=== PATIENT | male | born 1995 | race Caucasian/White ===

== ENCOUNTER 2016-10-15 11:40 | Emergency (ER) | payer BC ==
[2016-10-15] MEDS ORDERED: Al Hydrox/Mg Hydrox/Simet LIQ* 30 ML UDC PO ONE (12:45)
[2016-10-15] MEDS ORDERED: Lidocaine 2% VISCOUS* 15 ML UDC PO ONE (12:45)
--- NOTE | 2016-10-15 13:13 | ED ---
Throat Pain/Nasal Congestion - HPI Summary HPI Summary: 21M presents with feeling that something is stuck in throat. He states he had an episode of vomiting and feels that some of his vomit is stuck in his throat. He denies any n/v since. He denies any abdominal pain, diarrhea or constipation. He did drink and eat something since but still feels that it is stuck. He denies any chest pain or SOB. He denies any cough or fever. He says pain is on the right of his throat. - History of Current Complaint Chief Complaint: EDGeneral Time Seen by Provider: 10/15/16 12:33 - Allergies/Home Medications Allergies/Adverse Reactions: Allergies Allergy/AdvReac Type Severity Reaction Status Date / Time No Known Allergies Allergy Verified 10/15/16 13:35 PMH/Surg Hx/FS Hx/Imm Hx Endocrine/Hematology History: Denies: Hx Anticoagulant Therapy Cardiovascular History: Denies: Hx Hypertension Infectious Disease History: No Infectious Disease History: Denies: Traveled Outside the [place] in Last 30 Days - Family History Known Family History: Positive: Cardiac Disease - Social History Alcohol Use: Occasionally Substance Use Type: Reports: None Smoking Status (MU): Never Smoked Tobacco Review of Systems Negative: Fever Positive: Sore Throat Negative: Chest Pain Negative: Shortness Of Breath All Other Systems Reviewed And Are Negative: Yes Physical Exam Triage Information Reviewed: Yes Vital Signs On Initial Exam: Initial Vitals Temp Pulse Resp BP Pulse Ox 98.4 F 52 18 115/72 99 10/15/16 11:45 10/15/16 11:45 10/15/16 11:45 10/15/16 11:45 10/15/16 11:45 Vital Signs Reviewed: Yes Appearance: Positive: Well-Appearing Skin: Positive: Warm, Dry Head/Face: Positive: Normal Head/Face Inspection Eyes: Positive: Normal, EOMI, CHELA, Conjunctiva Clear ENT: Positive: Pharynx normal - with scratch on right seen with no active bleeding where pain is, TMs normal Respiratory/Lung Sounds: Positive: Clear to Auscultation, Breath Sounds Present Cardiovascular: Positive: Normal, RRR Diagnostics - Vital Signs Vital Signs Temp Pulse Resp BP Pulse Ox 10/15/16 12:34 98.4 F 59 16 117/77 100 10/15/16 11:45 98.4 F 52 18 115/72 99 - Laboratory Lab Statement: Any lab studies that have been ordered have been reviewed, and results considered in the medical decision making process. EENT Course/Dx - Course Course Of Treatment: 21M presents with feeling that something is stuck in throat. He states he had an episode of vomiting and feels that some of his vomit is stuck in his throat. He denies any n/v since. He denies any abdominal pain, diarrhea or constipation. He did drink and eat something since but still feels that it is stuck. He denies any chest pain or SOB. stratch seen in throat and foreign body. do not suspect foreign body is still suck. gave lidocaine and told that if develops chest pain or SOB to return. patient understands and agrees with plan - Differential Diagnoses Differential Diagnoses: Foreign Body, Tonsilitis, Other - scratch in throat - Diagnoses Provider Diagnoses: Throat pain Discharge - Discharge Plan Condition: Good Disposition: HOME Referrals: Non Staff,Doctor [Primary Care Provider] - Additional Instructions: Take Tylenol or ibuprofen for pain Avoid acidic food Drink liquids and eat softer foods Return to ED if develop any new or worsening symptoms
[2016-10-15 13:35] VITALS: BP 117/69
== END 2016-10-15 13:28 | disposition home or self-care (01) ==
LOC: ED 11:40
DX: R07.0 Pain in throat (principal)
CPT/HCPCS: 99282